=== PATIENT | female | born 1940 | race Caucasian/White ===

== ENCOUNTER 2017-06-15 01:26 | Observation (INO) | payer OTHER ==
[~2017-06-15] VITALS: Ht 157.5 cm; Wt 81.6 kg
[~2017-06-15 01:26] MED LIST: LOSARTAN-HCTZ1 EAC2 PO; SIMVASTATIN40 M1 PO; VITAMIN K100 MCG PO
--- NOTE | 2017-06-15 12:37 | Admission Core Measures ---
Acute Coronary Syndrome (CM) ACS Core Measures Acute Coronary Syndrome Diagnosis No Congestive Heart Failure (NEW) CHF Core Measures Congestive Heart Failure Diagnosis No Cerebrovascular Accident (NEW) CVA Core Measures CVA/TIA Diagnosis No Venous Thromboembolism VTE Core Lenard (View Protocol) VTE Risk Factors Surgery No Mechanical VTE Prophylaxis d/t N/A MechProphylax Ordered No VTE Pharm Prophylaxis d/t NA PharmProphylax ordered Problem List As ranked by this Provider includes Assessment & Plan 1. Parotid tumor HOME MEDS Home Med List Losartan/Hydrochlorothiazide (Losartan-Hctz 100-25 MG Tab) 100 MG-25 MG TABLET 1 TAB PO DAILY BP (Reported) Phytonadione (Vitamin K) 100 MCG TABLET 1 TAB PO D LOW K (Reported) Simvastatin (Simvastatin*) 40 MG TABLET 1 TAB PO QPM CHOLESTEROL (Reported)
--- NOTE | 2017-06-15 13:09 | Operative Report ---
Operative/Inv Procedure Report Surgery Date: 06/15/17 Name of Procedure: Partial parotidectomy with facial nerve dissection with tumor removal, with Nims monitor, right Pre-Operative Diagnosis: Parotid tumor, right Post-Operative Diagnosis: Same Estimated Blood Loss: less than 50ml Surgeon/House Carpenter: Rosio FLORES,Rosemary ESCAMILLA Anesthesia: general endotracheal tube Monitors: NIMS monitor Drains: QUETA 1 Specimens: Parotid tumor, right Microbiology: none Complications: none Condition: Stable on leaving the OR Operative Indication: Parotid tumor, right Operative/Procedure Note Note: The patient was brought to the operating room, placeded on the operating room table in supine position. At first timeout was performed including patient's identification and the surgical procedure to be performed. Then general orotracheal anesthesia was induced with oral endotracheal tube. Table was rotated 90 to the patient's right away from anesthesia with light face and neck toward the surgeon. Head was rotated to the left, right face and neck exposed . The NIMS electrodes were inserted into the lower lip, upper lip bordering on nasolabial fold, lower eyelid, upper eyelid bordering on forhead and ground electrodes were placed over the sternum, electrodes were then connected to the NIMS monitor. The electrodes were was secured in place with OpSite. The nerve monitor was set on parotidectomy 4 Leads. Transparent drape was placed over the face for monitoring of the facial movement. Face and neck were then prepped and draped in the routine manner and surgery was performed. Parotidectomy incision was then marked in preauricular region curving around the ear lobe and extending horizontally in a skin crease manner along the lateral neck. The incision was crosshatched over the horizontal part of the proposed incision. Parotid gland was palpated. There is approximately 3 cm tumor located at the preauricular midportion of the parotid. The tumor was easily mobile. The incision was made in the preauricular rebound or extending around the earlobe and curving onto the neck. The incision was carried through the skin into the subcutaneous tissue. In the preauricular region for the dissection was carried bluntly with Gonzalez. The parotid fascia was identified and elevated over the parotid gland for the dissection was carried around the earlobe and onto the neck. [place] branch of the great auricular nerve was identified and preserved. Sternocleidomastoid muscle was identified and parotid and fibrofatty tissue were dissected away from the sternocleidomastoid. Retraction sutures were placed with 2-0 silk for retraction of the skin flap anteriorly over the face and ear lobe posteriorly away from the incision. Now, blunt dissection was carried in preauricular region along the cartilaginous external auditory canal. Parotid gland was retracted anteriorly and dissection was done in a broad manner and extended onto infra-auricular region. The tumor was palpated. It was located in preauricular region extending to the anterior border of the parotid and relatively superficial. The trunk of facial nerve was identified next. It was located at about 1 cm deep to the cartilaginous canal and 1 cm inferior to it. Careful dissection along the facial nerve was then carried all the way to the pess and then upper branches were dissected. Deep posterior facial vein was identified as it crossed the upper main branch of the facial nerve. The vein was preserved. Careful dissection to the parotid was then carried until tumor was encountered. Additional dissection for the parotid was done with facial nerve branches fully visualized at the time of dissection. Tumor was encapsulated and separate from the parotid. Tumor capsule was then dissected away from the overlying pre-parotid fascia. The tumor extended all the way to the anterior aspect of the parotid. Careful dissection freed the anterior border. Additional dissection was carried down anterior to both inferior and superior finally the only attachments were all along the bed of the tumor. There are uppper facial nerve branches appeared to be deep to the tumor. They were carefully dissected away from the tumor and tumor was freed and removed. Surgery was completed. Wound was copiously irrigated. Additional bleeding sites cauterized with bipolar. Helotene powder was placed into the neck dissection bed. A #10 [place] Citizen suction drain was inserted into the wound for drainage, exiting over the posterior aspect of the incision. Drain was stitched in place with 2-0 silk. Closure was then carried at first platysma with 4-0 Vicryl inverting sutures followed by skin closure with 5-0 Monocryl horizontal subcuticular running stitch. Dermabond was applied to the incision followed by Steri-Strips. Drain tubing was connected to the self suction carnisters. Pressure dressing was placed with iodoform gauze, fluffs and wraparound four-inch gauze. Patient was then reawakened, extubated and taken to the recovery room in good condition. There were no complications. All facial nerve branches were fully mobile. Estimated blood loss was scant. Findings: Parotid, right 3 x 3 cm encapsulated tumor located over the mid anterior gland extending to the anterior border of the gland, the upper facial nerve branches were fully identified and branches were located deep to the parotid tumor Discharge Disposition: PACU
--- NOTE | 2017-06-15 14:05 | PN- General Surgery ---
Subjective Subjective: "I feel well" states her incisional pain is minimal. Sipping on water and ice without nausea or emesis On 2 liters NC with adeqaute sats. Objective Vital Signs and I&Os Alert, fully oriented, looks comfortable, conversing. R neck/ head bandage( Kerlix) is dry. QUETA to suction , no output. Not tender to palpation on R neck. Lungs clear, voice normal Heart regular Abd. benign. Assessment/Plan Assessment/Plan s/p R partial parotidectomy for tumor POD#0 Pt. is hemodynamically stable , normal vitals. Wound with dressing , no active bleeding Minimal discomfort at incision. No difficulty swallowing , no neurological deficits.No respiratory issues. Routine care. Monitor QUETA On Heparin sc and ALPS for DVT prophylaxis. May advance diet to solid food today as tolerated. Core Measures Venous Thromboembolism VTE Risk Factors Surgery No Mechanical VTE Prophylaxis d/t N/A MechProphylax Ordered No VTE Pharm Prophylaxis d/t NA PharmProphylax ordered
[2017-06-15 16:00] VITALS: BP 130/60
--- NOTE | 2017-06-15 16:25 | Patient Discharge Instructions ---
Discharge Instructions General Discharge Information You were seen/treated for: Parotid tumor, right You had these procedures: Partial parotidectomy with facial nerve dissection with tumor removal, with Nims monitor, right on 06/15/17 Watch for these problems: Increased pain, swelling, drainage, difficulty breathing or swallowing, fever or chills Do not soak the wound: Yes No bath, but you may shower: Yes Other wound care: Keep incision clean and dry Dr. Avelar to change first dressing then you may change dressing daily as needed Special Instructions: Take Duricef as intructed for 5 days Take Percocet as needed for pain Follow up at Dr. Chicas office tomorrow for postop check and possible drain removal. Diet Continue normal diet: Yes Activity Activity Self Limited: Yes Acute Coronary Syndrome Inclusion Criteria At DC or during hospital stay patient has or had the following: ACS DIAGNOSIS No Discharge Core Measures Meds if any: Prescribed or Continued at Discharge Meds if any: NOT Prescribed or Continued at Discharge Congestive Heart Failure Inclusion Criteria At DC or during hospital stay patient has or had the following: CHF DIAGNOSIS No Discharge Core Measures Meds if any: Prescribed or Continued at Discharge Meds if any: NOT Prescribed or Continued at Discharge Cerebrovascular accident Inclusion Criteria At DC or during hospital stay patient has or had the following: CVA/TIA Diagnosis No Discharge Core Measures Meds if any: Prescribed or Continued at Discharge Meds if any: NOT Prescribed or Continued at Discharge Venous thromboembolism Inclusion Criteria VTE Diagnosis No VTE Type NONE VTE Confirmed by (Test) NONE Discharge Core Measures - Per Current guidelines, there needs to be overlap - treatment for the first 5 days of Warfarin therapy. - If discharged on Warfarin prior to 5 days of - overlap therapy, the patient will need to be - assessed for post discharge needs including - *Post discharge parental anticoagulation - *Warfarin and/or parental anticoagulation education - *Follow up date to check INR post discharge At least 5 days overlap therapy as Inpatient No Meds if any: Prescribed or Continued at Discharge Note: Overlap Therapy is Warfarin and Anticoagulant Meds if any: NOT Prescribed or Continued at Discharge
[2017-06-15 18:00] VITALS: BP 122/68
[2017-06-15 22:00] VITALS: BP 130/74
[2017-06-16 02:23] VITALS: BP 124/74
[2017-06-16 06:00] VITALS: BP 130/68
[2017-06-16] MEDS ORDERED: CEFADROXIL500 M1 PO (07:18)
[2017-06-16] MEDS ORDERED: PERCOCET 5-3251 EACH PO (07:18)
--- NOTE | 2017-06-16 07:19 | PN- Ear, Nose & Throat ---
See Addendum Subjective Subjective: Patient reports an episode of dizziness in the PACU which resolved around 7 pm. She states she is tolerating a diet without any nausea or vomiting. She denies any difficulty swallowing or voice changes, chest pain difficulty breathing or shortness or breath. She is voiding and ambulating without difficulty. Objective Vital Signs and I&Os Vital Signs Date Time Temp Pulse Resp B/P B/P Pulse O2 O2 Flow FiO2 Mean Ox Delivery Rate 06/16 0223 98.3 66 18 124/74 96 Room Air 06/15 2200 98.0 74 18 130/74 95 Room Air 06/15 1838 Room Air 06/15 1800 96.0 62 18 122/68 99 Room Air 06/15 1600 97.1 66 18 130/60 98 Room Air Intake & Output 06/16 0800 06/16 0000 06/15 1600 06/15 0800 06/15 0000 06/14 1600 Intake Total 950 Output Total 600 Balance 350 Intake, IV 600 Intake, Oral 350 Output, Urine 600 Patient 180 lb Weight Physical Exam: Gen - Resting comfortably awake an alert in NAD HEENT - Circumfrential dressing around her face is c/d/i, QUETA to bulb suction with no output and nontenderness to palpation Cardiac - S1S2 noted, RRR Lungs - CTAB Ext - No edema or calf tenderness B/L Current Medications: Current Medications Sig/Melquiades Start time Last Medication Dose Route Stop Time Status Admin Acetaminophen 325 MG Q6P PRN 06/15 1545 AC PO Atorvastatin Calcium 20 MG 1700 06/15 1700 AC 06/15 PO 1749 Cefazolin Sodium 2 GM IQ8 06/15 1600 AC 06/16 N/A 1 UNIT IV 06/16 1559 0100 Heparin Sodium 5,000 UNIT Q8 06/15 2200 AC 06/16 (Porcine) SC 0648 Hydrochlorothiazide 25 MG DAILY 06/16 1000 AC PO Hydromorphone HCl 2 MG .STK-MED ONE 06/15 1226 DC IM 06/15 1227 Hydromorphone HCl 2 MG .STK-MED ONE 06/15 1139 DC IM 06/15 1140 Lactated Ringer's 1,000 ML Q13H 06/15 1545 AC 06/16 IV 0645 Losartan Potassium 100 MG DAILY 06/16 1000 AC PO Morphine Sulfate 2 MG Q4-PRN PRN 06/15 1545 AC IV Morphine Sulfate 4 MG Q4-PRN PRN 06/15 1545 AC IV Omeprazole 40 MG DAILY AC 06/16 0700 AC 06/16 PO 0648 Ondansetron HCl 4 MG Q6P PRN 06/15 1545 AC 06/15 IV 1919 Oxycodone/ 1 TAB Q4P PRN 06/15 1545 AC Acetaminophen PO Oxycodone/ 2 TAB Q4P PRN 06/15 1545 AC Acetaminophen PO Assessment/Plan Assessment/Plan 76 F POD 1 s/p right partial parotidectomy w/ QUETA x1 secondary to parotid tumor who is recovering well and stable for discharge Dressing and QUETA drain to remain in place Advance to regular soft diet Cont ancef while QUETA is in place Pain regimen prn Home meds on board GI/DVT ppx on board F/u labs D/c home with 5 day course of Duricef and Percocet for pain F/u at Dr. Avelar office tomorrow for dressing change and possible QUETA removal Cont observation status in anticipation of d/c today D/w Dr. Avelar Core Measures Venous Thromboembolism VTE Risk Factors Surgery No Mechanical VTE Prophylaxis d/t N/A MechProphylax Ordered No VTE Pharm Prophylaxis d/t NA PharmProphylax ordered
--- NOTE | 2017-06-16 07:23 | Surg Short-stay <48hrs Dis Sum ---
Visit Information Visit Dates Admission Date: 06/15/17 Discharge Date: 06/16/17 Surgical Short Stay DC Summary Admission Diagnosis: Parotid tumor, right Final Diagnosis: Same s/p partial parotidectomy with facial nerve dissection with tumor removal, with Nims monitor, right Procedure(s): Partial parotidectomy with facial nerve dissection with tumor removal, with Nims monitor, right on 06/15/17 Summary/Significant Findings: Patient presented electively for a right partial parotidectomy with facial nerve dissection with tumor removal, with Nims monitor with Dr. Avelar. Patient tolerated procedure well, without complication and was transfered to the floor instable condition. Her diet was advanced and tolerated, pain was controlled and QUETA drain remained in place prior to discharge. Remainder of hospital course was uneventful. Condition at Discharge: Stable Discharge Disposition: home or self care Discharge instructions provided to patient/family: Yes Post discharge follow-up plan: Follow up with Dr. Avelar tomorrow, 06/17/17.
[2017-06-16 07:46] VITALS: BP 126/76
[2017-06-16 08:27] LABS: ABSOLUTE BASOPHIL COUNT 0 /CUMM (0.0-0.2); ABSOLUTE EOSINOPHIL COUNT 0 /CUMM (0.0-0.7); ABSOLUTE GRANULOCYTE CT 6.6 /CUMM (1.4-6.5); ABSOLUTE LYMPH COUNT 1.5 /CUMM (1.2-3.4); ABSOLUTE MONOCYTE COUNT 0.7 /CUMM (0.10-0.60); BASOPHIL % 0.4 % (0.0-2.0); EOSINOPHIL % 0.1 % (0-5); GRANULOCYTE % 74.7 % (42.2-75.2); HEMATOCRIT 40.5 % (37-47); MEAN CORPUSCULAR HGB 29.4 PG (27.0-31.0); MEAN CORPUSCULAR HGB CONC 33.4 G/DL (33.0-37.0); MEAN CORPUSCULAR VOLUME 88.2 FL (81.0-99.0); MEAN PLATELET VOLUME 8.7 FL (7.4-10.4); PLATELET COUNT 206 /CUMM (130-400); RBC DISTRIBUTION WIDTH 14.3 % (11.5-14.5); RED BLOOD CELL CT 4.59 /CUMM (4.20-5.40); WHITE BLOOD CELL COUNT 8.8 /CUMM (4.8-10.8)
== END 2017-06-16 09:22 | disposition home health service (06) ==
LOC: STS 01:26 → PACUH 12:27 → ENRESERV 14:31 → ENTRNSPT 15:17 → 2NA 15:30 → EDTRNSPT 15:37 → EDTRNSPTSTS 15:37 → CMPTRNSPT 15:38 → ENPENDDIS 06-16 07:20 → ENTRNSPT 06-16 09:07 → EDTRNSPT 06-16 09:19 → EDTRNSPTSTS 06-16 09:19 → 2NA 06-16 09:22 → CMPTRNSPT 06-16 10:02
PROVIDERS: Physician Assistant Surgical
DX: D11.0 Benign neoplasm of parotid gland (principal); I10 Essential (primary) hypertension; E11.9 Type 2 diabetes mellitus without complications; E78.5 Hyperlipidemia, unspecified; Z87.891 Personal history of nicotine dependence
CPT/HCPCS: 1255; 6030; 36592; 82436; 88307; 96372; 96375; G0378; J0131; J0690; J1644; J2405; J3490; J7120

== ENCOUNTER → 2017-08-14 | Day surgery (SDC) | payer OTHER ==
[~2017-08-14] VITALS: Ht 157.5 cm; Wt 81.6 kg
[~2017-08-14] MED LIST changes: +CEFADROXIL500 M1 PO; +PERCOCET 5-3251 EACH PO
--- NOTE | 2017-08-14 09:14 | Operative Report ---
Operative/Inv Procedure Report Surgery Date: 08/14/17 Name of Procedure: Left partial mastectomy Pre-Operative Diagnosis: Left breast cancer Post-Operative Diagnosis: Same Estimated Blood Loss: scant Surgeon/Transportation Director: Rosy Luz MD Anesthesia: local monitored anesthesi Specimens: Left lumpectomy, cranial margin, caudal margin, medial margin, lateral margin, deep margin Operative/Procedure Note Note: Patient brought to the operating room on 08/14/2017 and placed supine on the table. Sedation was administered and the patient was maintained on oxygen. 2 g of Ancef was given. The left breast was prepped and draped in a sterile fashion using ChloraPrep. The mass palpable in the upper outer quadrant. Local anesthesia 1% lidocaine mixed Marcaine Was Given. 2 Curvilinear Incisions Were Made above and below the Mass. An Ellipse of Skin Was Excised with the Lumpectomy. The Lumpectomy Was Performed down to the Pectoralis Fascia. Specimen Was Removed and Marked for Orientation Using Margin Map. Intraoperative X-Ray Confirmed the Presence of the Clip in Specimen. Additional Margins Were Taken in the Cranial, Caudal, Medial, Lateral, and Deep Positions. Pectoralis Fascia Was Injected with Additional Local Anesthesia. Clips Are Used To [place] the Margins of Lumpectomy Bed. Deep Tissue Was Approximated Using Interrupted Vicryl Sutures and Skin Was Was Using a Running Biosyn Subcuticular Stitch. Steri-Strips and Sterile Dressings Were Applied. Patient Was Transferred to the Recovery Room in Satisfactory Condition Having Tolerated the Procedure Well.
--- NOTE | 2017-08-14 10:39 | Operative Report ---
Operative/Inv Procedure Report Surgery Date: 08/14/17 Name of Procedure: Left partial mastectomy with wire localization Pre-Operative Diagnosis: Left breast DCIS Post-Operative Diagnosis: Same Estimated Blood Loss: less than 50ml Surgeon/Application Security Consultant: Rosy Luz MD Anesthesia: local monitored anesthesi Specimens: Left lumpectomy, cranial margin, caudal margin, medial margin, lateral margin, deep margin Operative/Procedure Note Note: Patient is brought to the operating room on 08/14/2017 after preoperative wire localization was performed and the films were reviewed. Should the diagnosis of DCIS a needle biopsy. Additional calcifications were bracketed. Anesthesia was administered and the left breast was prepped and draped in a sterile fashion. 2 g of Ancef was also given. Local anesthesia 1% lidocaine mixed half percent Marcaine was given and a curvilinear incision was made around the areola. Her brought into the incision area of concern was grasped using an Allis clamp. There is dissected from the dermis posteriorly. The specimen was removed and marked for orientation using margin map. Intraoperative x-ray confirmed the presence of the clip and multiple calcifications. Additional margins were taken in the cranial, caudal, medial, lateral, deep, positions. The dermis of the areola was visible for the anterior margin. Hemostasis was adequate. The margins a lumpectomy were marked using margin map. Deep tissue was approximated using interrupted Vicryl sutures and skin was closed using a running Biosyn subcuticular stitch. Steri-Strips and sterile dressings were applied and the patient was transferred to the recovery room in satisfactory condition having tolerated procedure well.
--- NOTE | 2017-08-14 22:56 | MAMMOGRAPHY REPORT ---
EXAMINATION: MM NEEDLE LOCALIZATION SPECIMEN FROM THE BREAST, LEFT CLINICAL INDICATION: Left breast regional calcifications in the upper outer quadrant positive for ductal carcinoma in situ COMPARISON: Needle localization mammograms from earlier on the same day. TECHNIQUE: A single radiograph of the left breast specimen submitted from the operating room is acquired. FINDINGS: The radiograph of the excised surgical specimen shows that the hook wires are delivered intact and the marker clip and calcifications are identified in the specimen. IMPRESSION: Satisfactory excision of the targeted lesion. These findings were communicated to the surgeon in the OR at the time of specimen radiography.
--- NOTE | 2017-08-15 07:09 | MAMMOGRAPHY REPORT ---
PROCEDURE: MM NEEDLE LOCALIZATION, LEFT CLINICAL INFORMATION: Left breast upper outer quadrant calcifications positive for ductal carcinoma in situ. Status post stereotactic biopsy on 07/04/2017. COMPARISON: Left breast stereotactic biopsy and post biopsy mammography of 07/04/2017. Mammograms of 06/01/2017 and 05/31/2017. TECHNIQUE NEEDLE LOC: Proper informed consent is obtained from the patient after discussion of the procedure, potential risks and complications, and alternatives including declining the procedure today. Patient was given an opportunity for questions. The patient appeared to understand. The patient consented to the procedure and signed the consent form. GUIDANCE: Digital mammography. APPROACH: Lateral Medial. TARGET: Regional calcifications in the upper outer quadrant in the anterior third. ANESTHESIA: 5 mL lidocaine 1%. LOCALIZATION MARKER: Kopans x 2. The skin was prepped and local anesthesia administered. Initially, the needle was positioned to localize the post stereotactic biopsy clip in the upper outer quadrant. A second needle was then positioned to localize anterior extent of the calcifications. The position of the needles was assessed with mammography. The wires were hooked into position. The patient tolerated the procedure well and had no immediate complication. Diagram was marked for the surgeon. The target is biopsy clip in the upper outer quadrant, 5.5 cm deep to the skin with 14.5 cm of the wire remaining external to the skin. The target is anterior margin of the additional calcifications in the upper outer quadrant, 7 cm deep to the skin with 13 cm of wire remaining external to the skin. IMPRESSION: Status post left breast needle localization with wires hooked into position as detailed above.
== END ==
LOC: STS 04:16
DX: D05.12 Intraductal carcinoma in situ of left breast (principal); I10 Essential (primary) hypertension; Z85.51 Personal history of malignant neoplasm of bladder; E11.9 Type 2 diabetes mellitus without complications; Z79.84 Long term (current) use of oral hypoglycemic drugs; E04.1 Nontoxic single thyroid nodule
CPT/HCPCS: J0131; J0690; J1100; J2001; J2250; J2405